=== PATIENT | female | born 1980 | race Caucasian/White ===

== ENCOUNTER → 2019-02-23 | Outpatient (CLI) | payer MEDICARE ==
[~2019-02-23] MED LIST: ACEBUTCAFT PO; ALBU90OI INH; ALBU90OI6 INH; ALPR.25 PO; ALPR.5; ALPR1; ALPR1 PO; AMOCLA875; AMOX500 PO; AZIT250 PO; Amox Tr-K Clv1 EAC1 PO; BACL10 PO; Bactroban22 GM TOP; CARI350 PO; CEPH500 PO; CETI10; CHANTIX; CHLO500 PO; CIPR250 PO; CIPR500 PO; CIPRO500 MG PO; CITA20 PO; CLAR250; CLIN150 PO; CLIN300 PO; CLON.1 PO; COPAXINE; COPAXONE40 MG/1 ML SQ; CRUTCH4 USE; CYCL10; CYCL10 PO; Cipro500 MG PO; DIAZ5 PO; GABA300; GABA600 PO; GENT.3OPO TOP; GLATIRAMER INJ; GUAI600ER PO; HYDACE10B; HYDACE10B PO; HYDACE5 PO; HYDACE5325 PO; IBUP400 PO; IBUP600 PO; IBUP800 PO; LANS30EC; LEVFLO500 PO; MEDICAL MARIJUANA; METO10 PO; MS MED; NAPR220 PO; NAPR500 PO; NITR100CA PO; Neurontin 300300 MG PO; ONDA4 PO; ONDA4ODT MM; OXYACE5T PO; OXYC30 PO; OXYC5 PO; PENVK500 PO; PHENA100 PO; PHENA200 PO; PRED10 PO; PRED20 PO; PROM25 PO; Pyridium100 MG PO; Pyridium200 MG PO; RANI150; ROPI1 PO; ROPI2 PO; RXPROM25 PO; THRIVE VITAMINS; TOBR.3OPO OP; TRAZ150T57 PO; Ultram50 MG PO; Zanaflex2 M1 PO; Zofran8 MG PO; [UNRECOGNIZED DRUG - OTHER]
[2019-02-23 15:20] LABS: Hematocrit 34.1 % (33.0-51.0)
== END ==
LOC: LAB SHORT 12:06 → LAB 12:06
PROVIDERS: Obstetrics & Gynecology
DX: Z34.02 Encounter for supervision of normal first pregnancy, second trimester (principal)
CPT/HCPCS: 82950; 85014; 85018; 86803

== ENCOUNTER → 2019-04-16 | Outpatient (CLI) | payer MEDICARE ==
[2019-04-17 09:08] LABS: Candida species (DNA Probe) Negative (NEGATIVE); G. vaginalis (DNA Probe) Positive (NEGATIVE); T. vaginalis (DNA Probe) Negative (NEGATIVE)
== END | disposition home or self-care (01) ==
LOC: LAB SHORT 10:30 → LAB 10:30
PROVIDERS: Obstetrics & Gynecology
DX: N76.0 Acute vaginitis (principal)
CPT/HCPCS: 87480; 87510; 87660

== ENCOUNTER → 2019-05-01 | Outpatient (CLI) | payer MEDICARE | END | disposition home or self-care (01) | LOC: LAB 17:10 → LAB SHORT 17:10 | DX: Z34.93 Encounter for supervision of normal pregnancy, unspecified, third trimester (principal) | CPT/HCPCS: 87081; 87653 ==

== ENCOUNTER 2019-05-25 12:19 | Inpatient (IN) | payer MEDICARE ==
[~2019-05-25] VITALS: Ht 157.5 cm; Wt 73.0 kg
[2019-05-25 13:29] LABS: BASOPHILS ABSOLUTE AUTO 0.03 K/mm3 (0.00-0.23); BASOPHILS PERCENT AUTO 0 % (0-2); EOSINOPHILS PERCENT AUTO 1 % (0-6); Hematocrit 37.5 % (33.0-51.0); Hemoglobin 12.4 g/dL (11.5-16.0); IMMATURE GRAN ABSOLUTE AUTO 0.03 K/mm3 (0.00-0.10); IMMATURE GRAN PERCENT AUTO 0 % (0-1); LYMPHOCYTES ABSOLUTE AUTO 1.65 K/mm3 (0.84-5.20); LYMPHOCYTES PERCENT AUTO 20 % (21-46); MONOCYTES ABSOLUTE AUTO 0.54 K/mm3 (0.16-1.47); MONOCYTES PERCENT AUTO 7 % (4-13); Mean Corpuscular HGB 31.2 pg (26.0-34.0); Mean Corpuscular HGB Conc 33.1 g/dL (31.5-36.5); Mean Corpuscular Volume 95 fL (80-100); Mean Platelet Volume 10.4 fL (9.1-12.4); NEUTROPHILS ABSOLUTE AUTO 5.73 K/mm3 (1.96-9.15); NEUTROPHILS PERCENT AUTO 71 % (41-73); Platelet Count 267 K/mm3 (150-400); RDW Coefficient Variation 14.4 % (11.7-14.2); Red Blood Cell Count 3.97 M/mm3 (3.80-5.20); White Blood Cell Count 8.08 K/mm3 (4.00-11.30)
[2019-05-25 20:02] LABS: U Amphetamine Screen Not Detected; U Barbituate Screen Not Detected; U Benzodiazapine Screen Not Detected; U Buprenorphine Screen Not Detected; U Cannabinoids Screen DETECTED; U Cocaine Screen Not Detected; U Methadone Screen Not Detected; U Methamphetamine Screen Not Detected; U Opiates Screen Not Detected; U Oxycodone Screen Not Detected; U Phencyclidine Screen Not Detected; U Propoxyphene Screen Not Detected
[2019-05-26 15:13] LABS: PCO2 Cord - Arterial 50.7 mmHg (40-50); PO2 Cord - Arterial 22.5 mmHg (16-20)
[2019-05-26 15:15] LABS: PCO2 Cord - Venous 45.5 mmHg (40-50); PO2 Cord - Venous 19.9 mmHg (28-32); pH Umbilical Cord - Venous 7.35 (7.26-7.35)
--- NOTE | 2019-05-26 16:00 | NUR ---
05/26/19 1600 Maria Eugenia Zurita BABY OUT AT 1456, SEE MD NOTES FOR CONDITION OF INFANT. CORD BLOOD GIVEN TO OB RN
[2019-05-27 10:39] LABS: Hemoglobin 9.8 g/dL (11.5-16.0); RDW Coefficient Variation 15.2 % (11.7-14.2)
[2019-05-27 10:42] LABS: Hematocrit 30.2 % (33.0-51.0); Mean Corpuscular HGB 30.9 pg (26.0-34.0); Mean Corpuscular HGB Conc 32.5 g/dL (31.5-36.5); Mean Corpuscular Volume 95 fL (80-100); Mean Platelet Volume 10.7 fL (9.1-12.4); Platelet Count 222 K/mm3 (150-400); RDW Standard Deviation 52.4 fL (35.1-46.3); Red Blood Cell Count 3.17 M/mm3 (3.80-5.20)
--- NOTE | 2019-05-28 01:58 | NUR ---
PT IV WENT BAD, PT REQUESTS THAT WE JUST SWITCH TO ORALS AT THIS TIME RATHER THAN START ANOTHER IV AND DOING THE REST OF THE TORAODL DOSES.
--- NOTE | 2019-05-28 07:44 | NUR ---
SHIFT SUMMARY; PT STRUGGLED WITH PAIN LAST NIGHT AND RECEIVED 2 ANDRE AT A TIME. SHE SAID THAT HER INCISION WAS BURNING AND VERY SHARP HOWEVER WENT OUT TO SMOKE X2. IV INFILITRATED AND PT REQUESTED TO SWITCH TO ORALS RATHER THAN START ANOTHER IV TO GET HER LAST DOSES OF TORADOL. PT VERBALIZED TO ME THAT SHE WAS VERY HAPPY THAT HER DAUGHTER PASSED ALL OF HER TESTS INCLDUING THE HEARING AND CARDIAC EXAM SHE THOUGHT SHE VERY WELL MAY HAVE MESSED UP HER CHILD THROUGHOUT THE . SHE VOICED TO ME THAT SHE WAS IN AND OUT OF HOMELESSNESS THROUGHOUT THE AND ONE TIME HAD BEEN SPUN OUT ON [place] W[place]ING ON THE FREE[place]AY AND CLIMBING OVER MEDIANS. SHE HAS BEEN VERY OPEN WITH HER DRUG HX AND HAS TRIED TO TAKE MINIMAL AMOUNTS OF NARCOTICS AND VOICES THAT SHE DOES NOT WANT TO GO HOME WITH A NARCOTIC PRESCRIPTION. WHEN HER IV WENT BAD AND I OFFERED TO START ANOTHER FOR HER SUBSEQUENT TORADOL DOSES, SHE SAID OH MY IV IS FINE, "I USED TO SHOOT UP IV METH IN THAT VEIN, TORADOL ISN'T GOING TO DO ANYTHING." SHE VOICED TO ME THAT SHE WENT USED TO SELL OXYCODONE FOR ~ $30 A PILL AND WOULD SEE A PAIN SPECIALIST DR GLOVER THAT WOULD PRESCRIBE HER WHATEVER SHE WANTED. SHE WAS NO LONGER ABLE TO RECEIVE ANY NARCOTICS FROM THE [facility]. SHE ALSO TOLD ME THAT SHE WENT TO DETENTION HERE IN [place] FOR DRUGS IN THE PAST. SHE IS VERY HAPPY WITH HER DAUGHTER THAT SHE IS HERE HOWEVER NEVER PLANNED ON HAVING CHILDREN. VSS. INCISION WNL. FUNDUS FIRM. FEEDING AND TAKING CARE OF APPROPRIATELY. I DID TAKE OUT ONCE AROUND 3 SO MOM COULD SLEEP FOR A LITTLE BIT. BABY DID TAKE SOME FORMULA AT THAT TIME.
--- NOTE | 2019-05-28 14:06 | NUR ---
REPORT TO SAMANTHA COOPER
--- NOTE | 2019-05-29 16:22 | NUR ---
RN ROUNDED TO HELP WITH . MOM REPORTS NB IS WELL. DENIES ANY QUESTIONS OR CONCERNS. RN REVIEWED BOOK AND PAMPHLET GIVEN, REVIEWED PAGES ABOUT CORRECT LATCH, STOOL TRANSITION, STOMACH SIZE.
--- NOTE | 2019-05-30 09:28 | NUR ---
PT CRYING THIS MORNING R/T BEING UPSET WITH S.O. PT STATES SHE IS UPSET WITH HER S.O. AND STATED THAT SHE IS PLANNING ON STAYING WITH HER GRANDMOTHER AFTER DISCHARGE INSTEAD OF GOING BACK HOME WITH HIM. PT DOES NOT VERBALIZE THAT SHE IS FEARFUL TO GO HOME WITH HIM FOR SAFETY CONCERNS, SHE STATES THAT SHE IS JUST FRUSTERATED WITH HIM BECAUSE HE KEEPS LEAVING AND DOESN'T HAVE A JOB AND SHE'S EXHAUSTED. PT STATES THAT IS LOOKING FORWARD TO BEING DISCHARGED TODAY AND DOES HAVE ADEQUATE HELP FROM HER GRANDMOTHER, MOTHER, AND SISTER AFTER DISCHARGE.
[2019-05-30] MEDS ORDERED: DOCU100 PO (12:08)
[2019-05-30] MEDS ORDERED: ROXICODONE5 MG PO (12:08)
[2019-05-30] MEDS ORDERED: PRENATAL TABLE1 EAC2 PO (12:09)
[2019-05-30] MEDS ORDERED: GABA300 PO (12:09)
== END 2019-05-30 12:50 | disposition home or self-care (01) | DRG 787 ==
LOC: OBS 12:19 → BC 12:19 → OBS 12:37 → BC 12:38
PROVIDERS: Obstetrics & Gynecology; ADMIT Obstetrics & Gynecology
PROC: 3E033VJ Introduction of Other Hormone into Peripheral Vein, Percutaneous Approach (ICD-10-PCS; 2019-05-25)
PROC: 10907ZC Drainage of Amniotic Fluid, Therapeutic from Products of Conception, Via Natural or Artificial Opening (ICD-10-PCS; 2019-05-25)
PROC: 10H07YZ Insertion of Other Device into Products of Conception, Via Natural or Artificial Opening (ICD-10-PCS; 2019-05-26)
PROC: 3E0R3BZ Introduction of Anesthetic Agent into Spinal Canal, Percutaneous Approach (ICD-10-PCS; 2019-05-26)
PROC: 10D00Z1 Extraction of Products of Conception, Low, Open Approach (ICD-10-PCS; principal; 2019-05-26 14:30)
DX: O77.0 Labor and delivery complicated by meconium in amniotic fluid (principal); O99.354 Diseases of the nervous system complicating childbirth; G35 Multiple sclerosis; Z3A.39 39 weeks gestation of pregnancy; Z37.0 Single live birth; O62.1 Secondary uterine inertia; O76 Abnormality in fetal heart rate and rhythm complicating labor and delivery; O61.0 Failed medical induction of labor; Z87.891 Personal history of nicotine dependence
CPT/HCPCS: 36415; 51701; 51702; 82803; 85025; 85027; J0290; J1580; J1885; J2001; J2210; J2250; J2405; J2590; J2765; J3010; J7120

== ENCOUNTER → 2021-07-02 | Outpatient (CLI) | payer MEDICARE, OTHER ==
[~2021-07-02] MED LIST changes: +DOCU100 PO; +GABA300 PO; +PRENATAL TABLE1 EAC2 PO; +ROXICODONE5 MG PO
[2021-07-03 14:29] LABS: Candida species (DNA Probe) Negative (NEGATIVE); G. vaginalis (DNA Probe) Positive (NEGATIVE); T. vaginalis (DNA Probe) Negative (NEGATIVE)
== END | disposition home or self-care (01) ==
LOC: LAB SHORT 08:54
PROVIDERS: Obstetrics & Gynecology
DX: N76.0 Acute vaginitis (principal)
CPT/HCPCS: 87480; 87510; 87660

== ENCOUNTER 2023-12-25 00:46 | Emergency (ER) | payer MEDICARE ==
[~2023-12-25] VITALS: Ht 157.5 cm; Wt 65.8 kg
[2023-12-25 02:53] LABS: BASOPHILS ABSOLUTE AUTO 0.06 K/mm3 (0.00-0.23); BASOPHILS PERCENT AUTO 1 % (0-2); EOSINOPHILS ABSOLUTE AUTO 0.22 K/mm3 (0.00-0.68); EOSINOPHILS PERCENT AUTO 3 % (0-6); Hematocrit 39.6 % (33.0-51.0); Hemoglobin 13.6 g/dL (11.5-16.0); IMMATURE GRAN ABSOLUTE AUTO 0.01 K/mm3 (0.00-0.10); IMMATURE GRAN PERCENT AUTO 0 % (0-1); LYMPHOCYTES ABSOLUTE AUTO 1.21 K/mm3 (0.84-5.20); LYMPHOCYTES PERCENT AUTO 16 % (21-46); MONOCYTES ABSOLUTE AUTO 0.51 K/mm3 (0.16-1.47); MONOCYTES PERCENT AUTO 7 % (4-13); Mean Corpuscular HGB 32.4 pg (26.0-34.0); Mean Corpuscular HGB Conc 34.3 g/dL (31.5-36.5); Mean Corpuscular Volume 94 fL (80-100); Mean Platelet Volume 9.9 fL (9.1-12.4); NEUTROPHILS ABSOLUTE AUTO 5.72 K/mm3 (1.96-9.15); NEUTROPHILS PERCENT AUTO 74 % (41-73); Platelet Count 234 K/mm3 (150-400); RDW Coefficient Variation 11.9 % (11.7-14.2); RDW Standard Deviation 41.3 fL (35.1-46.3); White Blood Cell Count 7.73 K/mm3 (4.00-11.30)
[2023-12-25 03:14] LABS: Albumin, Blood 3.7 g/dL (3.4-5.0); Albumin/Globulin Ratio 1.2 (0.8-1.8); Bilirubin, Total 0.2 mg/dL (0.1-1.0); Bun/Creatinine Ratio 12.9 (12.0-20.0); Calcium, Blood 8.5 mg/dL (8.5-10.1); Creatinine, Blood 0.62 mg/dL (0.40-1.00); Globulin, Blood 3.2 g/dL (2.2-4.0); Potassium, Blood 3.4 mmol/L (3.5-5.5); Total Protein, Blood 6.9 g/dL (6.4-8.2)
[2023-12-25 05:10] VITALS: BP 105/80
[2023-12-25 05:32] LABS: U Cannabinoids Screen DETECTED
[2023-12-25 05:33] LABS: U Amphetamine Screen Not Detected; U Barbituate Screen Not Detected; U Benzodiazapine Screen Not Detected; U Buprenorphine Screen Not Detected; U Cocaine Screen Not Detected; U Methadone Screen Not Detected; U Methamphetamine Screen Not Detected; U Opiates Screen Not Detected; U Oxycodone Screen Not Detected; U Phencyclidine Screen Not Detected
== END 2023-12-25 05:21 | disposition home or self-care (01) ==
LOC: ER 00:46
PROVIDERS: Student in an Organized Health Care Education/Training Program
DX: F10.129 Alcohol abuse with intoxication, unspecified (principal); J44.9 Chronic obstructive pulmonary disease, unspecified; Z87.891 Personal history of nicotine dependence; Z79.899 Other long term (current) drug therapy; Z88.2 Allergy status to sulfonamides; Z88.5 Allergy status to narcotic agent; Z88.1 Allergy status to other antibiotic agents
CPT/HCPCS: 80053; 80320; 85025; 93005; 93010; 99284-25

== ENCOUNTER → 2024-12-10 | Outpatient (CLI) | payer MEDICARE, OTHER ==
[~2024-12-10] MED LIST changes: +ALEVE220 MG PO; +LESSINA-28 TAB1 EACH PO
== END ==
LOC: LAB SHORT 14:10 → LAB 14:10
DX: J01.20 Acute ethmoidal sinusitis, unspecified (principal)
CPT/HCPCS: 87070; 87075; 87077; 87147; 87186; 87205

== ENCOUNTER 2024-12-12 15:47 | Emergency (ER) | payer MEDICARE, OTHER ==
[~2024-12-12] VITALS: Ht 157.5 cm; Wt 65.8 kg
[2024-12-12 16:54] LABS: BASOPHILS ABSOLUTE AUTO 0.01 K/mm3 (0.00-0.23); BASOPHILS PERCENT AUTO 0 % (0-2); EOSINOPHILS ABSOLUTE AUTO 0.00 K/mm3 (0.00-0.68); EOSINOPHILS PERCENT AUTO 0 % (0-6); Hematocrit 39.8 % (33.0-51.0); Hemoglobin 13.7 g/dL (11.5-16.0); IMMATURE GRAN ABSOLUTE AUTO 0.01 K/mm3 (0.00-0.10); IMMATURE GRAN PERCENT AUTO 0 % (0-1); LYMPHOCYTES ABSOLUTE AUTO 0.41 K/mm3 (0.84-5.20); LYMPHOCYTES PERCENT AUTO 9 % (21-46); MONOCYTES ABSOLUTE AUTO 0.04 K/mm3 (0.16-1.47); MONOCYTES PERCENT AUTO 1 % (4-13); Mean Corpuscular HGB Conc 34.4 g/dL (31.5-36.5); Mean Corpuscular Volume 94 fL (80-100); NEUTROPHILS ABSOLUTE AUTO 4.31 K/mm3 (1.96-9.15); NEUTROPHILS PERCENT AUTO 90 % (41-73); NRBC ABSOLUTE 0.00 K/mm3 (0.00-0.02); NRBC Auto 0.0 /100 WBC (0.0-0.2); Platelet Count 284 K/mm3 (150-400); RDW Coefficient Variation 12.4 % (11.7-14.2); RDW Standard Deviation 42.6 fL (35.1-46.3)
[2024-12-12 17:16] LABS: Alanine Aminotransfer (ALT/SGP 25.0 U/L (12-78); Albumin, Blood 4.0 g/dL (3.4-5.0); Albumin/Globulin Ratio 1.2 (0.8-1.8); Anion Gap 8.0 mmol/L (3-11); Aspartate Aminotrans (AST/SGOT 16.0 U/L (12-37); Bilirubin, Total 0.2 mg/dL (0.1-1.0); Blood Urea Nitrogen 12.0 mg/dL (8-24); CO2, Blood 23.0 mmol/L (21-32); Calcium, Blood 9.0 mg/dL (8.5-10.1); Chloride, Blood 107.0 mmol/L (98-108); Creatinine, Blood 0.68 mg/dL (0.40-1.00); Globulin, Blood 3.3 g/dL (2.2-4.0); Glucose, Blood 128.0 mg/dL (70-99); Potassium, Blood 3.9 mmol/L (3.5-5.5); Sodium, Blood 134.0 mmol/L (136-145); Total Protein, Blood 7.3 g/dL (6.4-8.2)
[2024-12-12 19:09] VITALS: BP 134/81
== END 2024-12-12 19:06 | disposition left against medical advice (07) ==
LOC: ER 15:47
PROVIDERS: Student in an Organized Health Care Education/Training Program
DX: R53.1 Weakness (principal); R20.0 Anesthesia of skin; Z53.21 Procedure and treatment not carried out due to patient leaving prior to being seen by health care provider
CPT/HCPCS: 71046; 80053; 84484; 85025; 93005; 93010; 99282-25

== ENCOUNTER 2024-12-13 18:30 | Emergency (ER) | payer MEDICARE, OTHER ==
[~2024-12-13] VITALS: Ht 157.5 cm; Wt 65.8 kg
[2024-12-13 18:59] VITALS: BP 130/81
[2024-12-14] MEDS ORDERED: METHYLPREDNIS1000 M1 IV (14:14)
== END 2024-12-13 21:34 | disposition home or self-care (01) ==
LOC: ER 18:30
DX: G35 Multiple sclerosis (principal); J44.9 Chronic obstructive pulmonary disease, unspecified; Z87.891 Personal history of nicotine dependence; Z79.899 Other long term (current) drug therapy; Z88.2 Allergy status to sulfonamides; Z88.5 Allergy status to narcotic agent; Z88.1 Allergy status to other antibiotic agents; Z88.8 Allergy status to other drugs, medicaments and biological substances
CPT/HCPCS: 96374; 99283-25; J2919

== ENCOUNTER 2024-12-14 13:54 | Day surgery (SDC) | payer MEDICARE, OTHER ==
[2024-12-14 14:03] VITALS: BP 134/81
[2024-12-14] MEDS ORDERED: METHYLPREDNIS1000 M1 IV (14:14)
== END 2024-12-14 14:45 | disposition home or self-care (01) ==
LOC: ATC 13:54
DX: G35 Multiple sclerosis (principal); J44.9 Chronic obstructive pulmonary disease, unspecified; Z87.891 Personal history of nicotine dependence; Z88.8 Allergy status to other drugs, medicaments and biological substances; Z88.2 Allergy status to sulfonamides; Z88.1 Allergy status to other antibiotic agents; Z88.5 Allergy status to narcotic agent; Z79.899 Other long term (current) drug therapy
CPT/HCPCS: 96365; J2919

== ENCOUNTER 2024-12-15 00:39 | Day surgery (SDC) | payer MEDICARE, OTHER ==
[~2024-12-15 00:39] MED LIST changes: +METHYLPREDNIS1000 M1 IV
[2024-12-15 13:37] VITALS: BP 118/76
== END 2024-12-15 14:11 | disposition home or self-care (01) ==
LOC: ATC 00:39
DX: G35 Multiple sclerosis (principal); J44.9 Chronic obstructive pulmonary disease, unspecified; Z88.8 Allergy status to other drugs, medicaments and biological substances; Z88.2 Allergy status to sulfonamides; Z88.5 Allergy status to narcotic agent; Z88.1 Allergy status to other antibiotic agents; Z79.899 Other long term (current) drug therapy; Z87.891 Personal history of nicotine dependence
CPT/HCPCS: 96365; J2919

== ENCOUNTER 2024-12-16 00:16 | Day surgery (SDC) | payer MEDICARE, OTHER ==
[2024-12-16 13:34] VITALS: BP 123/71
== END 2024-12-16 14:05 | disposition home or self-care (01) ==
LOC: ATC 00:16
DX: G35 Multiple sclerosis (principal); J44.9 Chronic obstructive pulmonary disease, unspecified; Z88.8 Allergy status to other drugs, medicaments and biological substances; Z88.2 Allergy status to sulfonamides; Z88.5 Allergy status to narcotic agent; Z88.1 Allergy status to other antibiotic agents; Z79.899 Other long term (current) drug therapy; Z87.891 Personal history of nicotine dependence
CPT/HCPCS: 96365; J2919

== ENCOUNTER 2024-12-17 02:30 | Day surgery (SDC) | payer MEDICARE, OTHER ==
[2024-12-17 13:25] VITALS: BP 123/81
== END 2024-12-17 14:01 | disposition home or self-care (01) ==
LOC: ATC 02:30
DX: G35 Multiple sclerosis (principal); J44.9 Chronic obstructive pulmonary disease, unspecified; Z87.891 Personal history of nicotine dependence; Z79.1 Long term (current) use of non-steroidal anti-inflammatories (NSAID); Z88.2 Allergy status to sulfonamides; Z88.1 Allergy status to other antibiotic agents; Z88.5 Allergy status to narcotic agent; Z88.6 Allergy status to analgesic agent; Z88.8 Allergy status to other drugs, medicaments and biological substances
CPT/HCPCS: J2919

== ENCOUNTER → 2025-01-26 | Outpatient (CLI) | payer MEDICARE, OTHER ==
[~2025-01-26] MED LIST changes: +CITALOPRAM HBR10 MG PO; +DELTASONE20 MG PO
== END | disposition home or self-care (01) ==
LOC: LAB 18:00 → LAB SHORT 18:00
DX: M54.59 Other low back pain (principal)
CPT/HCPCS: 87086

== ENCOUNTER 2025-01-27 17:01 | Emergency (ER) | payer MEDICARE, OTHER ==
[~2025-01-27] VITALS: Ht 157.5 cm; Wt 68.0 kg
[~2025-01-27 17:01] MED LIST changes: -CITALOPRAM HBR10 MG PO; -DELTASONE20 MG PO
[2025-01-27 17:48] LABS: BASOPHILS ABSOLUTE AUTO 0.02 K/mm3 (0.00-0.23); BASOPHILS PERCENT AUTO 0 % (0-2); EOSINOPHILS ABSOLUTE AUTO 0.00 K/mm3 (0.00-0.68); EOSINOPHILS PERCENT AUTO 0 % (0-6); Hematocrit 39.0 % (33.0-51.0); Hemoglobin 13.7 g/dL (11.5-16.0); IMMATURE GRAN ABSOLUTE AUTO 0.04 K/mm3 (0.00-0.10); IMMATURE GRAN PERCENT AUTO 0 % (0-1); LYMPHOCYTES ABSOLUTE AUTO 0.56 K/mm3 (0.84-5.20); LYMPHOCYTES PERCENT AUTO 6 % (21-46); MONOCYTES ABSOLUTE AUTO 0.15 K/mm3 (0.16-1.47); MONOCYTES PERCENT AUTO 2 % (4-13); Mean Corpuscular HGB Conc 35.1 g/dL (31.5-36.5); Mean Corpuscular Volume 93 fL (80-100); NEUTROPHILS ABSOLUTE AUTO 8.16 K/mm3 (1.96-9.15); NEUTROPHILS PERCENT AUTO 91 % (41-73); NRBC ABSOLUTE 0.00 K/mm3 (0.00-0.02); NRBC Auto 0.0 /100 WBC (0.0-0.2); Platelet Count 271 K/mm3 (150-400); RDW Coefficient Variation 12.0 % (11.7-14.2); RDW Standard Deviation 40.9 fL (35.1-46.3)
[2025-01-27 18:17] LABS: Alanine Aminotransfer (ALT/SGP 23.0 U/L (12-78); Albumin, Blood 4.2 g/dL (3.4-5.0); Albumin/Globulin Ratio 1.4 (0.8-1.8); Anion Gap 9.0 mmol/L (3-11); Aspartate Aminotrans (AST/SGOT 19.0 U/L (12-37); Bilirubin, Total 0.3 mg/dL (0.1-1.0); Blood Urea Nitrogen 10.0 mg/dL (8-24); CO2, Blood 24.0 mmol/L (21-32); Calcium, Blood 9.2 mg/dL (8.5-10.1); Chloride, Blood 108.0 mmol/L (98-108); Creatinine, Blood 0.64 mg/dL (0.40-1.00); Globulin, Blood 3.1 g/dL (2.2-4.0); Glucose, Blood 137.0 mg/dL (70-99); Potassium, Blood 4.0 mmol/L (3.5-5.5); Sodium, Blood 137.0 mmol/L (136-145); Total Protein, Blood 7.3 g/dL (6.4-8.2)
[2025-01-27] MEDS ORDERED: DELTASONE20 MG PO (20:13)
[2025-01-27] MEDS ORDERED: CITALOPRAM HBR10 MG PO (20:13)
[2025-01-27] MEDS ORDERED: AZIT250 PO (20:13)
[2025-01-27 21:00] VITALS: BP 111/98
== END 2025-01-27 21:07 | disposition home or self-care (01) ==
LOC: ER 17:01
PROVIDERS: Student in an Organized Health Care Education/Training Program
DX: R00.2 Palpitations (principal); J44.9 Chronic obstructive pulmonary disease, unspecified; G35.D Multiple sclerosis, unspecified; Z87.891 Personal history of nicotine dependence; Z88.2 Allergy status to sulfonamides; Z88.6 Allergy status to analgesic agent; Z88.1 Allergy status to other antibiotic agents; Z88.5 Allergy status to narcotic agent; Z88.8 Allergy status to other drugs, medicaments and biological substances; Z79.52 Long term (current) use of systemic steroids; Z79.2 Long term (current) use of antibiotics; Z79.899 Other long term (current) drug therapy
CPT/HCPCS: 80053; 83690; 84484; 85025; 93005; 93010; 99285-25

== ENCOUNTER 2025-02-23 07:14 | Emergency (ER) | payer MEDICARE, OTHER ==
[~2025-02-23] VITALS: Ht 157.5 cm; Wt 68.0 kg
[~2025-02-23 07:14] MED LIST changes: +CITALOPRAM HBR10 MG PO; +DELTASONE20 MG PO
[2025-02-23] MEDS ORDERED: CELEXA10 MG PO (07:35)
[2025-02-23] MEDS ORDERED: AVIANE-28 TABL1 EACH PO (07:35)
[2025-02-23 08:21] LABS: BASOPHILS ABSOLUTE AUTO 0.05 K/mm3 (0.00-0.23); BASOPHILS PERCENT AUTO 1 % (0-2); EOSINOPHILS ABSOLUTE AUTO 0.12 K/mm3 (0.00-0.68); EOSINOPHILS PERCENT AUTO 2 % (0-6); Hematocrit 42.0 % (33.0-51.0); Hemoglobin 14.5 g/dL (11.5-16.0); IMMATURE GRAN ABSOLUTE AUTO 0.02 K/mm3 (0.00-0.10); IMMATURE GRAN PERCENT AUTO 0 % (0-1); LYMPHOCYTES ABSOLUTE AUTO 0.91 K/mm3 (0.84-5.20); LYMPHOCYTES PERCENT AUTO 14 % (21-46); MONOCYTES ABSOLUTE AUTO 0.51 K/mm3 (0.16-1.47); MONOCYTES PERCENT AUTO 8 % (4-13); Mean Corpuscular HGB Conc 34.5 g/dL (31.5-36.5); Mean Corpuscular Volume 92 fL (80-100); NEUTROPHILS ABSOLUTE AUTO 4.97 K/mm3 (1.96-9.15); NEUTROPHILS PERCENT AUTO 76 % (41-73); NRBC ABSOLUTE 0.00 K/mm3 (0.00-0.02); NRBC Auto 0.0 /100 WBC (0.0-0.2); Platelet Count 276 K/mm3 (150-400); RDW Coefficient Variation 11.9 % (11.7-14.2); RDW Standard Deviation 40.1 fL (35.1-46.3)
[2025-02-23 08:49] LABS: Beta HCG, Quantitative, Serum <1 mIU/mL (0-3)
[2025-02-23 08:54] LABS: Alanine Aminotransfer (ALT/SGP 29 U/L (12-78); Albumin, Blood 3.9 g/dL (3.4-5.0); Albumin/Globulin Ratio 1.1 (0.8-1.8); Anion Gap 9 mmol/L (3-11); Aspartate Aminotrans (AST/SGOT 22 U/L (12-37); Bilirubin, Total 0.6 mg/dL (0.1-1.0); Blood Urea Nitrogen 8 mg/dL (8-24); CO2, Blood 23 mmol/L (21-32); Calcium, Blood 9.0 mg/dL (8.5-10.1); Chloride, Blood 108 mmol/L (98-108); Creatinine, Blood 0.62 mg/dL (0.40-1.00); Globulin, Blood 3.5 g/dL (2.2-4.0); Glucose, Blood 100 mg/dL (70-99); Potassium, Blood 3.8 mmol/L (3.5-5.5); Sodium, Blood 136 mmol/L (136-145); Total Protein, Blood 7.4 g/dL (6.4-8.2)
[2025-02-23] MEDS ORDERED: NS 1,000 ML IV SCH (09:20)
[2025-02-23] MEDS ORDERED: Ondansetron HCl 2 MG / ML 2ML Vial IV ONE (09:20)
[2025-02-23] MEDS ORDERED: [UNRECOGNIZED DRUG - CODE] PO (11:36)
[2025-02-23] MEDS ORDERED: ONDA4ODT MM (11:36)
[2025-02-23 11:45] VITALS: BP 127/80
== END 2025-02-23 11:50 | disposition home or self-care (01) ==
LOC: ER 07:14
PROVIDERS: Student in an Organized Health Care Education/Training Program
DX: K85.90 Acute pancreatitis without necrosis or infection, unspecified (principal); R74.8 Abnormal levels of other serum enzymes; J44.9 Chronic obstructive pulmonary disease, unspecified; Z87.891 Personal history of nicotine dependence; Z88.2 Allergy status to sulfonamides; Z88.5 Allergy status to narcotic agent; Z88.1 Allergy status to other antibiotic agents; Z88.8 Allergy status to other drugs, medicaments and biological substances; Z79.899 Other long term (current) drug therapy
CPT/HCPCS: 71046; 76705; 80053; 83690; 84484; 84702; 85025; 93005; 93010; 96361; 96374; 99285-25; A9270; J2405; J7030

== ENCOUNTER 2025-02-24 14:50 | Emergency (ER) | payer MEDICARE, OTHER ==
[~2025-02-24] VITALS: Ht 157.5 cm; Wt 65.8 kg
[~2025-02-24 14:50] MED LIST changes: +AVIANE-28 TABL1 EACH PO; +CELEXA10 MG PO; +[UNRECOGNIZED DRUG - CODE] PO
[2025-02-24 14:52] VITALS: BP 158/92
[2025-02-24] MEDS ORDERED: Ketorolac Tromethamine 15mg Vial IV ONE (14:55)
== END 2025-02-24 16:26 | disposition left against medical advice (07) ==
LOC: ER 14:50
DX: R10.A3 Flank pain, bilateral (principal); Z53.21 Procedure and treatment not carried out due to patient leaving prior to being seen by health care provider
CPT/HCPCS: 93005; 93010; 99282-25; J1885

== ENCOUNTER 2025-02-28 21:25 | Emergency (ER) | payer MEDICARE, OTHER ==
[~2025-02-28] VITALS: Ht 157.5 cm; Wt 65.3 kg
[2025-02-28 21:59] LABS: BASOPHILS ABSOLUTE AUTO 0.05 K/mm3 (0.00-0.23); BASOPHILS PERCENT AUTO 1 % (0-2); EOSINOPHILS ABSOLUTE AUTO 0.08 K/mm3 (0.00-0.68); EOSINOPHILS PERCENT AUTO 2 % (0-6); Hematocrit 41.0 % (33.0-51.0); Hemoglobin 14.5 g/dL (11.5-16.0); IMMATURE GRAN ABSOLUTE AUTO 0.01 K/mm3 (0.00-0.10); IMMATURE GRAN PERCENT AUTO 0 % (0-1); LYMPHOCYTES ABSOLUTE AUTO 2.23 K/mm3 (0.84-5.20); LYMPHOCYTES PERCENT AUTO 42 % (21-46); MONOCYTES ABSOLUTE AUTO 0.71 K/mm3 (0.16-1.47); MONOCYTES PERCENT AUTO 13 % (4-13); Mean Corpuscular HGB Conc 35.4 g/dL (31.5-36.5); Mean Corpuscular Volume 90 fL (80-100); NEUTROPHILS ABSOLUTE AUTO 2.21 K/mm3 (1.96-9.15); NEUTROPHILS PERCENT AUTO 42 % (41-73); NRBC ABSOLUTE 0.00 K/mm3 (0.00-0.02); NRBC Auto 0.0 /100 WBC (0.0-0.2); Platelet Count 270 K/mm3 (150-400); RDW Coefficient Variation 11.8 % (11.7-14.2); RDW Standard Deviation 38.7 fL (35.1-46.3)
[2025-02-28 22:17] LABS: Alanine Aminotransfer (ALT/SGP 31.0 U/L (12-78); Albumin, Blood 4.0 g/dL (3.4-5.0); Albumin/Globulin Ratio 1.2 (0.8-1.8); Anion Gap 9.0 mmol/L (3-11); Aspartate Aminotrans (AST/SGOT 20.0 U/L (12-37); Bilirubin, Total 0.5 mg/dL (0.1-1.0); Blood Urea Nitrogen 6.0 mg/dL (8-24); CO2, Blood 22.0 mmol/L (21-32); Calcium, Blood 9.2 mg/dL (8.5-10.1); Chloride, Blood 108.0 mmol/L (98-108); Creatinine, Blood 0.63 mg/dL (0.40-1.00); Globulin, Blood 3.4 g/dL (2.2-4.0); Glucose, Blood 100.0 mg/dL (70-99); Potassium, Blood 3.4 mmol/L (3.5-5.5); Sodium, Blood 136.0 mmol/L (136-145); Total Protein, Blood 7.4 g/dL (6.4-8.2)
[2025-02-28] MEDS ORDERED: Morphine Sulfate 4 MG/1 ML Injection IV ONE (22:55)
[2025-02-28] MEDS ORDERED: Ondansetron HCl 2 MG / ML 2ML Vial IV ONE (22:55)
[2025-02-28] MEDS ORDERED: NS 1,000 ML IV SCH (22:55)
[2025-02-28 23:02] LABS: Magnesium, Blood 2.0 mg/dL (1.6-2.4)
[2025-02-28] MEDS ORDERED: DiphenhydrAMINE HCl 50 MG/ML 1ML Vial ONE (23:51)
[2025-02-28] MEDS ORDERED: ONDA4 PO (23:59)
[2025-02-28] MEDS ORDERED: DICY20 PO (23:59)
[2025-03-01 00:30] VITALS: BP 129/93
[2025-04-04] MEDS ORDERED: OXAYDO5 M7 PO (11:36)
[2025-04-22] MEDS ORDERED: PRED10 PO (14:56)
[2025-04-29] MEDS ORDERED: HYDHCL25 PO (22:51)
== END 2025-03-01 00:57 | disposition home or self-care (01) ==
LOC: ER 21:25
PROVIDERS: Physician Assistant
DX: K52.9 Noninfective gastroenteritis and colitis, unspecified (principal); Z88.8 Allergy status to other drugs, medicaments and biological substances; Z88.2 Allergy status to sulfonamides; Z88.1 Allergy status to other antibiotic agents; Z88.5 Allergy status to narcotic agent; Z87.891 Personal history of nicotine dependence
CPT/HCPCS: 71046; 74177; 80053; 83690; 83735; 84484; 85025; 93005; 93010; 96361; 96374-59; 96375; 99284-25; A9270; J1200; J2270; J2405; J7030; Q9967

== ENCOUNTER 2025-03-04 14:43 | Emergency (ER) | payer MEDICARE, OTHER ==
[~2025-03-04] VITALS: Ht 157.5 cm; Wt 59.0 kg
[~2025-03-04 14:43] MED LIST changes: +DICY20 PO
[2025-03-04 17:05] LABS: BASOPHILS ABSOLUTE AUTO 0.06 K/mm3 (0.00-0.23); BASOPHILS PERCENT AUTO 1 % (0-2); EOSINOPHILS ABSOLUTE AUTO 0.05 K/mm3 (0.00-0.68); EOSINOPHILS PERCENT AUTO 1 % (0-6); Hematocrit 43.2 % (33.0-51.0); Hemoglobin 14.8 g/dL (11.5-16.0); IMMATURE GRAN ABSOLUTE AUTO 0.01 K/mm3 (0.00-0.10); IMMATURE GRAN PERCENT AUTO 0 % (0-1); LYMPHOCYTES ABSOLUTE AUTO 1.19 K/mm3 (0.84-5.20); LYMPHOCYTES PERCENT AUTO 24 % (21-46); MONOCYTES ABSOLUTE AUTO 0.43 K/mm3 (0.16-1.47); MONOCYTES PERCENT AUTO 9 % (4-13); Mean Corpuscular HGB Conc 34.3 g/dL (31.5-36.5); Mean Corpuscular Volume 91 fL (80-100); NEUTROPHILS ABSOLUTE AUTO 3.20 K/mm3 (1.96-9.15); NEUTROPHILS PERCENT AUTO 65 % (41-73); NRBC ABSOLUTE 0.00 K/mm3 (0.00-0.02); NRBC Auto 0.0 /100 WBC (0.0-0.2); Platelet Count 295 K/mm3 (150-400); RDW Coefficient Variation 11.9 % (11.7-14.2); RDW Standard Deviation 40.2 fL (35.1-46.3)
[2025-03-04 17:14] LABS: Alanine Aminotransfer (ALT/SGP 31.0 U/L (12-78); Albumin, Blood 4.1 g/dL (3.4-5.0); Albumin/Globulin Ratio 1.2 (0.8-1.8); Anion Gap 9.0 mmol/L (3-11); Aspartate Aminotrans (AST/SGOT 38.0 U/L (12-37); Bilirubin, Total 0.7 mg/dL (0.1-1.0); Blood Urea Nitrogen 4.0 mg/dL (8-24); CO2, Blood 23.0 mmol/L (21-32); Calcium, Blood 9.0 mg/dL (8.5-10.1); Chloride, Blood 107.0 mmol/L (98-108); Creatinine, Blood 0.63 mg/dL (0.40-1.00); Globulin, Blood 3.5 g/dL (2.2-4.0); Glucose, Blood 108.0 mg/dL (70-99); Potassium, Blood 4.6 mmol/L (3.5-5.5); Sodium, Blood 134.0 mmol/L (136-145); Total Protein, Blood 7.6 g/dL (6.4-8.2)
[2025-03-04] MEDS ORDERED: Pantoprazole Sodium 40 MG Injection IV ONE (17:25)
[2025-03-04] MEDS ORDERED: Lidocaine 2% Viscous Soln 15 ML UDC PO ONE (17:25)
[2025-03-04] MEDS ORDERED: NS 1,000 ML IV SCH (17:25)
[2025-03-04] MEDS ORDERED: Metoclopramide HCl 5MG / ML 2ML Vial IV ONE (17:25)
[2025-03-04] MEDS ORDERED: DiphenhydrAMINE HCl 50 MG/ML 1ML Vial IV ONE (17:30)
[2025-03-04 17:58] VITALS: BP 133/96
[2025-03-04] MEDS ORDERED: ONDA4ODT MM (17:59)
[2025-03-04] MEDS ORDERED: PANT40 PO (17:59)
[2025-03-04] MEDS ORDERED: PROC25S PR (17:59)
[2025-03-04] MEDS ORDERED: RX Prepack 6 Tabs Oxycodone 5mg UD ONE (18:05)
== END 2025-03-04 18:47 | disposition home or self-care (01) ==
LOC: ER 14:43
PROVIDERS: Emergency Medicine
DX: R10.13 Epigastric pain (principal); R11.2 Nausea with vomiting, unspecified; Z87.891 Personal history of nicotine dependence; J44.9 Chronic obstructive pulmonary disease, unspecified
CPT/HCPCS: 71046; 80053; 83690; 84484; 85025; 93005; 93010; 96361; 96374; 96375; 99284-25; A9270; J1200; J2470; J2765; J7030

== ENCOUNTER 2025-03-08 16:19 | Emergency (ER) | payer MEDICARE, OTHER ==
[~2025-03-08] VITALS: Ht 157.5 cm; Wt 63.5 kg
[~2025-03-08 16:19] MED LIST changes: +PANT40 PO; +PROC25S PR
[2025-03-08 17:05] VITALS: BP 134/81
[2025-03-08] MEDS ORDERED: NS 1,000 ML IV SCH (17:15)
[2025-03-08 18:26] LABS: BASOPHILS ABSOLUTE AUTO 0.07 K/mm3 (0.00-0.23); BASOPHILS PERCENT AUTO 1 % (0-2); EOSINOPHILS ABSOLUTE AUTO 0.09 K/mm3 (0.00-0.68); EOSINOPHILS PERCENT AUTO 2 % (0-6); Hematocrit 45.1 % (33.0-51.0); Hemoglobin 15.5 g/dL (11.5-16.0); IMMATURE GRAN ABSOLUTE AUTO 0.05 K/mm3 (0.00-0.10); IMMATURE GRAN PERCENT AUTO 1 % (0-1); LYMPHOCYTES ABSOLUTE AUTO 1.78 K/mm3 (0.84-5.20); LYMPHOCYTES PERCENT AUTO 30 % (21-46); MONOCYTES ABSOLUTE AUTO 0.63 K/mm3 (0.16-1.47); MONOCYTES PERCENT AUTO 11 % (4-13); Mean Corpuscular HGB Conc 34.4 g/dL (31.5-36.5); Mean Corpuscular Volume 91 fL (80-100); NEUTROPHILS ABSOLUTE AUTO 3.34 K/mm3 (1.96-9.15); NEUTROPHILS PERCENT AUTO 56 % (41-73); NRBC ABSOLUTE 0.00 K/mm3 (0.00-0.02); NRBC Auto 0.0 /100 WBC (0.0-0.2); Platelet Count 260 K/mm3 (150-400); RDW Coefficient Variation 11.6 % (11.7-14.2); RDW Standard Deviation 38.9 fL (35.1-46.3)
[2025-03-08 18:43] LABS: Alanine Aminotransfer (ALT/SGP 37.0 U/L (12-78); Albumin, Blood 4.3 g/dL (3.4-5.0); Albumin/Globulin Ratio 1.3 (0.8-1.8); Anion Gap 11.0 mmol/L (3-11); Aspartate Aminotrans (AST/SGOT 20.0 U/L (12-37); Bilirubin, Total 0.5 mg/dL (0.1-1.0); Blood Urea Nitrogen 7.0 mg/dL (8-24); CO2, Blood 24.0 mmol/L (21-32); Calcium, Blood 9.2 mg/dL (8.5-10.1); Chloride, Blood 104.0 mmol/L (98-108); Creatinine, Blood 0.78 mg/dL (0.40-1.00); Globulin, Blood 3.2 g/dL (2.2-4.0); Glucose, Blood 94.0 mg/dL (70-99); Potassium, Blood 3.8 mmol/L (3.5-5.5); Sodium, Blood 135.0 mmol/L (136-145); Total Protein, Blood 7.5 g/dL (6.4-8.2)
== END 2025-03-08 20:14 | disposition home or self-care (01) ==
LOC: ER 16:19
PROVIDERS: Emergency Medicine
DX: R07.89 Other chest pain (principal); R42 Dizziness and giddiness; Z88.5 Allergy status to narcotic agent; Z88.8 Allergy status to other drugs, medicaments and biological substances; J44.9 Chronic obstructive pulmonary disease, unspecified; Z87.891 Personal history of nicotine dependence
CPT/HCPCS: 71045; 80053; 84484; 85025; 93005; 93010; 96360; 99285-25; J7030

== ENCOUNTER 2025-03-22 10:54 | Emergency (ER) | payer MEDICARE, OTHER ==
[~2025-03-22] VITALS: Ht 157.5 cm; Wt 61.2 kg
[2025-03-22 12:02] LABS: BASOPHILS ABSOLUTE AUTO 0.04 K/mm3 (0.00-0.23); BASOPHILS PERCENT AUTO 1 % (0-2); EOSINOPHILS ABSOLUTE AUTO 0.06 K/mm3 (0.00-0.68); EOSINOPHILS PERCENT AUTO 1 % (0-6); Hematocrit 44.0 % (33.0-51.0); Hemoglobin 15.4 g/dL (11.5-16.0); IMMATURE GRAN ABSOLUTE AUTO 0.01 K/mm3 (0.00-0.10); IMMATURE GRAN PERCENT AUTO 0 % (0-1); LYMPHOCYTES ABSOLUTE AUTO 1.05 K/mm3 (0.84-5.20); LYMPHOCYTES PERCENT AUTO 19 % (21-46); MONOCYTES ABSOLUTE AUTO 0.41 K/mm3 (0.16-1.47); MONOCYTES PERCENT AUTO 7 % (4-13); Mean Corpuscular HGB Conc 35.0 g/dL (31.5-36.5); Mean Corpuscular Volume 91 fL (80-100); NEUTROPHILS ABSOLUTE AUTO 4.05 K/mm3 (1.96-9.15); NEUTROPHILS PERCENT AUTO 72 % (41-73); NRBC ABSOLUTE 0.00 K/mm3 (0.00-0.02); NRBC Auto 0.0 /100 WBC (0.0-0.2); Platelet Count 258 K/mm3 (150-400); RDW Coefficient Variation 12.0 % (11.7-14.2); RDW Standard Deviation 39.6 fL (35.1-46.3)
[2025-03-22 12:30] LABS: Alanine Aminotransfer (ALT/SGP 46.0 U/L (12-78); Albumin, Blood 4.1 g/dL (3.4-5.0); Albumin/Globulin Ratio 1.2 (0.8-1.8); Anion Gap 10.0 mmol/L (3-11); Aspartate Aminotrans (AST/SGOT 33.0 U/L (12-37); Bilirubin, Total 0.6 mg/dL (0.1-1.0); Blood Urea Nitrogen 8.0 mg/dL (8-24); CO2, Blood 22.0 mmol/L (21-32); Calcium, Blood 9.7 mg/dL (8.5-10.1); Chloride, Blood 109.0 mmol/L (98-108); Creatinine, Blood 0.73 mg/dL (0.40-1.00); Globulin, Blood 3.5 g/dL (2.2-4.0); Glucose, Blood 99.0 mg/dL (70-99); Potassium, Blood 3.9 mmol/L (3.5-5.5); Sodium, Blood 137.0 mmol/L (136-145); Total Protein, Blood 7.6 g/dL (6.4-8.2)
[2025-03-22] MEDS ORDERED: OMEP20ER PO (13:50)
[2025-03-22 14:01] VITALS: BP 125/76
[2025-04-04] MEDS ORDERED: OXAYDO5 M7 PO (11:36)
== END 2025-03-22 13:59 | disposition home or self-care (01) ==
LOC: ER 10:54
PROVIDERS: Student in an Organized Health Care Education/Training Program
DX: K21.9 Gastro-esophageal reflux disease without esophagitis (principal); Z88.5 Allergy status to narcotic agent; Z88.8 Allergy status to other drugs, medicaments and biological substances; Z79.899 Other long term (current) drug therapy; Z79.891 Long term (current) use of opiate analgesic
CPT/HCPCS: 36415; 71046; 80053; 83690; 84484; 85025; 93005; 93010; 93246; 99285-25; A9270

== ENCOUNTER 2025-04-02 10:07 | Emergency (ER) | payer MEDICARE, OTHER ==
[~2025-04-02] VITALS: Ht 157.5 cm; Wt 59.0 kg
[~2025-04-02 10:07] MED LIST changes: +OMEP20ER PO
[2025-04-02 10:09] VITALS: BP 132/87
[2025-04-02 10:39] LABS: BASOPHILS ABSOLUTE AUTO 0.06 K/mm3 (0.00-0.23); BASOPHILS PERCENT AUTO 1 % (0-2); EOSINOPHILS ABSOLUTE AUTO 0.08 K/mm3 (0.00-0.68); EOSINOPHILS PERCENT AUTO 2 % (0-6); Hematocrit 42.4 % (33.0-51.0); Hemoglobin 14.5 g/dL (11.5-16.0); IMMATURE GRAN ABSOLUTE AUTO 0.01 K/mm3 (0.00-0.10); IMMATURE GRAN PERCENT AUTO 0 % (0-1); LYMPHOCYTES ABSOLUTE AUTO 1.05 K/mm3 (0.84-5.20); LYMPHOCYTES PERCENT AUTO 20 % (21-46); MONOCYTES ABSOLUTE AUTO 0.38 K/mm3 (0.16-1.47); MONOCYTES PERCENT AUTO 7 % (4-13); Mean Corpuscular HGB Conc 34.2 g/dL (31.5-36.5); Mean Corpuscular Volume 92 fL (80-100); NEUTROPHILS ABSOLUTE AUTO 3.80 K/mm3 (1.96-9.15); NEUTROPHILS PERCENT AUTO 71 % (41-73); NRBC ABSOLUTE 0.00 K/mm3 (0.00-0.02); NRBC Auto 0.0 /100 WBC (0.0-0.2); Platelet Count 282 K/mm3 (150-400); RDW Coefficient Variation 12.0 % (11.7-14.2); RDW Standard Deviation 41.0 fL (35.1-46.3)
[2025-04-02 11:09] LABS: Alanine Aminotransfer (ALT/SGP 42.0 U/L (12-78); Albumin, Blood 4.0 g/dL (3.4-5.0); Albumin/Globulin Ratio 1.1 (0.8-1.8); Anion Gap 10.0 mmol/L (3-11); Aspartate Aminotrans (AST/SGOT 16.0 U/L (12-37); Bilirubin, Total 0.4 mg/dL (0.1-1.0); Blood Urea Nitrogen 8.0 mg/dL (8-24); CO2, Blood 23.0 mmol/L (21-32); Calcium, Blood 9.2 mg/dL (8.5-10.1); Chloride, Blood 108.0 mmol/L (98-108); Creatinine, Blood 0.68 mg/dL (0.40-1.00); Globulin, Blood 3.6 g/dL (2.2-4.0); Glucose, Blood 101.0 mg/dL (70-99); Potassium, Blood 3.8 mmol/L (3.5-5.5); Sodium, Blood 137.0 mmol/L (136-145); Total Protein, Blood 7.6 g/dL (6.4-8.2)
[2025-04-04] MEDS ORDERED: OXAYDO5 M7 PO (11:36)
== END 2025-04-02 12:28 | disposition home or self-care (01) ==
LOC: ER 10:07
PROVIDERS: Emergency Medicine
DX: R07.9 Chest pain, unspecified (principal); R42 Dizziness and giddiness; J44.9 Chronic obstructive pulmonary disease, unspecified; Z87.891 Personal history of nicotine dependence; Z79.899 Other long term (current) drug therapy; Z88.5 Allergy status to narcotic agent; Z88.8 Allergy status to other drugs, medicaments and biological substances; Z88.1 Allergy status to other antibiotic agents; Z88.2 Allergy status to sulfonamides
CPT/HCPCS: 71046; 80053; 83880; 84484; 85025; 85379; 93005; 93010; 99285-25